=== PATIENT | female | born 1930 | race Caucasian/White ===

== ENCOUNTER 2018-09-08 13:08 | Inpatient (IN) | payer MEDICARE, OTHER ==
[~2018-09-08] VITALS: Ht 154.9 cm; Wt 56.3 kg
[2018-09-08] MEDS ORDERED: VANCOMYCIN PER PHARMACY MC ONE (13:30)
[2018-09-08] MEDS ORDERED: SODIUM CHLORIDE 0.9% 1,000ML IVBOLUS ONE ×2 (13:30)
[2018-09-08] MEDS ORDERED: AZTREONAM 2 GM in SODIUM CHLORIDE 0.9% 100 ML IVPB ONE (13:30)
--- NOTE | 2018-09-08 13:46 | NUR ---
PT. ARRIVES FROM [facility] WITH C/O BEING FOUND ON THE FLOOR, PALE, WEAK, AMS 9 WHICH RESOLVED0, HYPOTENSIVE AND INCONTINENT OF STOOL. UPON ARRIVAL TO THE ER PT. PRESENTS KNOWING HER NAME AND ANSWERING QUESTIONS APPROPIATELY. PT. WAS PLACED ON THE CP MONITOR, A SECOND IV WAS ESTABLISHED. PT. RECEIVED A 600CC BOLUS IN THE FIELD. PT. IS INCONTINENT OF BLOODY STOOL. PT. WAS GIVEN SKIN CARE AND A STRAIGHT CATH WAS COMPLETED. WARMING MEASURES ARE IN PLACE. PT.'S HOB IS ELEVATED GREATER THAN 30 DEGREES. PT.'S BP IS IMPROVING WITH THE NS BOLUS. MD TOMAS IS AT THE BEDSIDE. SIDERAILS ARE UP X 2 WITH THE CALL LIGHT IN PLACE. RN REMAINS AT THE BEDSIDE.
[2018-09-08 13:53] LABS: MICROSCOPIC AUTO
[2018-09-08 13:54] LABS: CULTURE INDICATED? NO
[2018-09-08 13:58] LABS: O2 FLOW ROOM AIR L/min
[2018-09-08] MEDS ORDERED: PLEASE ENTER ALLERGIES MC SCH (14:00)
[2018-09-08 14:04] LABS: ALANINE AMINOTRANSFERASE 10 U/L (12-78); ALBUMIN 1.9 g/dL (3.4-5.0); ANION GAP 14 mmol/L (5-15); CALCIUM 7.3 mg/dL (8.5-10.1); CHLORIDE 112 mmol/L (98-107); CREATININE 0.84 mg/dL (0.55-1.02); INTERNATIONAL NORMALIZED RATIO 1.1 (0.93-1.1); PROTHROMBIN TIME 11.5 Seconds (9.6-11.5)
[2018-09-08 14:09] LABS: ALKALINE PHOSPHATASE 24 U/L (45-117); BILIRUBIN,TOTAL 0.3 mg/dL (0.2-1.0); TOTAL PROTEIN 4.5 g/dL (6.4-8.2); TROPONIN I < 0.015 ng/mL (0.000-0.045)
[2018-09-08 14:10] LABS: MEAN CORPUSCULAR HEMOGLOBIN 31.6 pg (27.0-34.8); MEAN CORPUSCULAR HGB CONC 33.1 g/dL (32.4-35.8); MEAN CORPUSCULAR VOLUME 95.5 fL (80-100); MEAN PLATELET VOLUME 6.5 fL (7.4-10.4); PLATELET COUNT 266 x10^3/uL (130-400); RED BLOOD COUNT 1.96 x10^6/uL (3.82-5.3); RED CELL DISTRIBUTION WIDTH 15.4 % (9.6-15.2)
[2018-09-08] MEDS ORDERED: PANTOPRAZOLE 80 MG in SODIUM CHLORIDE 0.9% 50 ML IVPB ONE (14:17)
[2018-09-08] MEDS ORDERED: PANTOPRAZOLE 80 MG in SODIUM CHLORIDE 0.9% 100 ML IV SCH (14:17)
[2018-09-08 14:28] LABS: ACETONE, SERUM Negative (Negative)
--- NOTE | 2018-09-08 14:30 | NUR ---
PT HAD ANOTHER BLACK LIQUID STOOL BM. CLEANED UP PATIENT. PATIENT TO CT AT THIS TIME.
[2018-09-08] MEDS ORDERED: AMLO10TA8 PO (14:48)
[2018-09-08] MEDS ORDERED: CYCL5TAB PO (14:49)
[2018-09-08] MEDS ORDERED: HYDR-3240 PO (14:49)
[2018-09-08] MEDS ORDERED: HYDR25TA11 PO (14:50)
[2018-09-08] MEDS ORDERED: LIDO700A20 TD (14:52)
[2018-09-08] MEDS ORDERED: NAPR-816 PO (14:52)
[2018-09-08] MEDS ORDERED: ALBU90AE IH (14:53)
[2018-09-08] MEDS ORDERED: SENN-177 PO (14:53)
[2018-09-08 14:57] LABS: BASOPHILS # (AUTO) 0.04 x10^3/uL (0-0.1); BASOPHILS % (AUTO) 1 % (0-1); EOSINOPHILS # (AUTO) 0.58 x10^3/uL (0-0.4); EOSINOPHILS % (AUTO) 8 % (1-7); LYMPHOCYTES % (AUTO) 30 % (22-44); MD MORPH REVIEW ONLY; MONOCYTES # (AUTO) 0.63 x10^3/uL (0.2-0.8); MONOCYTES % (AUTO) 9 % (2-9); NEUTROPHILS # (AUTO) 3.61 x10^3/uL (1.8-6.8); NEUTROPHILS % (AUTO) 52 % (42-75)
--- NOTE | 2018-09-08 14:59 | NUR ---
PT BACK FROM CT. BLOOD REQUEST SLIP SENT TO BLOOD BANK.
[2018-09-08] MEDS ORDERED: OMNIPAQUE 350 MG/ML, 100ML BOTTLE ONE (15:00)
[2018-09-08 15:15] LABS: ANISOCYTOSIS 1+
[2018-09-08 15:16] LABS: OVALOCYTES 1+; POLYCHROMASIA 1+
[2018-09-08 15:17] LABS: <PLATELET ESTIMATE> ADEQUATE; SMALL PLATELETS 1+
[2018-09-08 15:18] VITALS: BP 87/32
--- NOTE | 2018-09-08 15:28 | NUR ---
FIRST UNIT OF PRBCs STARTED. PROTONIX LOADING DOSE COMPLETE AND PROTONIX DRIP RUNNING.
--- NOTE | 2018-09-08 15:29 | NUR ---
DAUGHTER, KELTON , DPOA AT BEDSIDE.
[2018-09-08] MEDS ORDERED: TRIA15CR3 TP (15:35)
[2018-09-08 15:37] VITALS: BP 96/41
--- NOTE | 2018-09-08 16:06 | NUR ---
VS UPDATED AND STABLE. ADMITTING PROVIDER, GUSTAVO THOMPSON AT BEDSIDE.
--- NOTE | 2018-09-08 16:26 | NUR ---
FIRST UNIT OF BLOOD COMPLETE. REQUEST SLIP SENT TO BLOOD BANK FOR SECOND UNIT.
[2018-09-08 16:37] VITALS: BP 88/39
[2018-09-08] MEDS ORDERED: SODIUM CHLORIDE 0.9% 1,000 ML IV SCH (16:37)
[2018-09-08 16:55] VITALS: BP 95/43
[2018-09-08] MEDS ORDERED: ACETAMINOPHEN 325 MG TABLET PO ONE (17:00)
[2018-09-08] MEDS: PANTOPRAZOLE 80 MG in SODIUM CHLORIDE 0.9% 100 ML IV SCH (17:39)
[2018-09-08] MEDS ORDERED: ACETAMINOPHEN 325 MG TABLET ONE (17:46)
[2018-09-08 18:05] VITALS: BP 108/49
--- NOTE | 2018-09-08 18:24 | NUR ---
SECOND UNIT OF PRBCs COMPLETED. PT RESTING WITH NO COMPLAINTS. VS STABLE.
[2018-09-08] MEDS: POTASSIUM CHLORIDE 10 MEQ in LACTATED RINGERS 1,000 ML IV SCH (18:43)
--- NOTE | 2018-09-08 18:44 | NUR ---
LR WITH 10mEQ KCL STARTED AT 125MLS/HR. PT SLEEPING. VS STABLE.
--- NOTE | 2018-09-08 18:58 | NUR ---
BREAK RN; PT RESTING IN NAD VSS
--- NOTE | 2018-09-08 19:35 | NUR ---
REPORT FROM SE PALOMINO. PT RESTING IN [facility] W/ EYES CLOSED; EVEN/REGULAR RESPIRATIONS NOTED. BP/SPO2/ECG MONITORING IN PLACE; NSR ON MONITOR. AWAITING HOSPITALIST RE-EVAL FOR POSSIBLE DOWNGRADE IN ADMIT FLOOR.
--- NOTE | 2018-09-08 20:55 | NUR ---
PT CO BACK PAIN. PT REPOSITIONED FOR COMFORT. AWAITING HOSPITALIST FOR PAIN MEDICATIONS.
--- NOTE | 2018-09-08 21:15 | NUR ---
[facility] REGARDING DOWN GRADE AND REQUEST FOR PAIN MEDICATIONS. NO ORDERS RECEIVED.
--- NOTE | 2018-09-08 21:18 | NUR ---
HOSPITAL BED REQUESTED FOR PT COMFORT
[2018-09-08] MEDS ORDERED: ONDANSETRON 2MG/ML, 2ML ONE (21:56)
[2018-09-08] MEDS: ONDANSETRON 2MG/ML, 2ML IV PRN (21:57)
--- NOTE | 2018-09-08 22:01 | NUR ---
PT MEDICATED PER EMAR FOR NAUSEA
--- NOTE | 2018-09-08 23:06 | NUR ---
PT REPORTS IMPROVEMENT IN NAUSEA WITH MEDICATIONS. PT TRANSFERED TO HOSPITAL BED W/ SCOTT MATRGUNNAR AND MOVED TO ROOM 18. BP/SPO2/ECG MONITORING IN PLACE. NSR ON MONITOR. PT RESTING COMFORTABLY IN HOSPITAL BED. REPORTS IMPROVEMENT IN BACK PAIN ONCE TRANSFERED. REPORT TO SE PALOMINO
--- NOTE | 2018-09-08 23:58 | NUR ---
report from ovi assumed care of pt, changed melissa and draw sheet, pt in nad at this time
[2018-09-09] VITALS (7 sets, daily range): BP systolic 93–115; BP diastolic 33–41
--- NOTE | 2018-09-09 01:19 | NUR ---
PT SLEEPING ON ALL MONITORS IN NAD
--- NOTE | 2018-09-09 01:49 | NUR ---
REPORT TO JOSE M PT TO ICU TO 549
[2018-09-09] MEDS: POTASSIUM CHLORIDE 10 MEQ in LACTATED RINGERS 1,000 ML IV SCH (02:31)
[2018-09-09] MEDS: PANTOPRAZOLE 80 MG in SODIUM CHLORIDE 0.9% 100 ML IV SCH ×3 (02:31→23:19)
[2018-09-09] MEDS ORDERED: PROPOFOL 10 MG/ML, 20ML ONE (10:46)
[2018-09-09] MEDS ORDERED: PROPOFOL 0 ML IV ONE (11:03)
[2018-09-09 12:02] LABS: BASOPHILS # (AUTO) 0.08 x10^3/uL (0-0.1); BASOPHILS % (AUTO) 1 % (0-1); EOSINOPHILS # (AUTO) 1.49 x10^3/uL (0-0.4); EOSINOPHILS % (AUTO) 22 % (1-7); LYMPHOCYTES % (AUTO) 32 % (22-44); MD NO; MEAN CORPUSCULAR HEMOGLOBIN 30.3 pg (27.0-34.8); MEAN CORPUSCULAR HGB CONC 34.1 g/dL (32.4-35.8); MEAN CORPUSCULAR VOLUME 88.7 fL (80-100); MEAN PLATELET VOLUME 6.7 fL (7.4-10.4); MONOCYTES # (AUTO) 0.48 x10^3/uL (0.2-0.8); MONOCYTES % (AUTO) 7 % (2-9); NEUTROPHILS # (AUTO) 2.49 x10^3/uL (1.8-6.8); NEUTROPHILS % (AUTO) 38 % (42-75); PLATELET COUNT 203 x10^3/uL (130-400); RED BLOOD COUNT 2.77 x10^6/uL (3.82-5.3)
[2018-09-09 12:04] LABS: ALANINE AMINOTRANSFERASE 11 U/L (12-78); ALBUMIN 1.7 g/dL (3.4-5.0); ANION GAP 6 mmol/L (5-15); CALCIUM 7.3 mg/dL (8.5-10.1); CHLORIDE 121 mmol/L (98-107); CREATININE 0.46 mg/dL (0.55-1.02)
[2018-09-09 12:06] LABS: ALKALINE PHOSPHATASE 26 U/L (45-117); BILIRUBIN,TOTAL 0.6 mg/dL (0.2-1.0); TOTAL PROTEIN 4.5 g/dL (6.4-8.2)
[2018-09-09] MEDS ORDERED: POTASSIUM PHOSPHATE 44 MEQ in SODIUM CHLORIDE 0.9% 500 ML IV ONE (13:00)
[2018-09-09] MEDS: SUCRALFATE 1 GM/10 ML UDC PO SCH ×3 (13:27→20:14)
[2018-09-09] MEDS: SODIUM CHLORIDE 0.9% 1,000 ML IV SCH (14:00)
[2018-09-10 00:31] VITALS: BP 105/38
[2018-09-10] MEDS: SODIUM CHLORIDE 0.9% 1,000 ML IV SCH (03:09)
[2018-09-10 04:00] VITALS: BP 96/30
[2018-09-10 05:09] LABS: ALBUMIN 1.7 g/dL (3.4-5.0); ANION GAP 6 mmol/L (5-15); CALCIUM 6.8 mg/dL (8.5-10.1); CHLORIDE 124 mmol/L (98-107)
[2018-09-10 05:13] LABS: ALANINE AMINOTRANSFERASE 21 U/L (12-78); ALKALINE PHOSPHATASE 28 U/L (45-117); BILIRUBIN,TOTAL 0.8 mg/dL (0.2-1.0); TOTAL PROTEIN 4.3 g/dL (6.4-8.2)
[2018-09-10 05:15] LABS: BASOPHILS # (AUTO) 0.05 x10^3/uL (0-0.1); BASOPHILS % (AUTO) 1 % (0-1); EOSINOPHILS # (AUTO) 1.24 x10^3/uL (0-0.4); EOSINOPHILS % (AUTO) 15 % (1-7); LYMPHOCYTES # (AUTO) 3.02 x10^3/uL (1-3.4); LYMPHOCYTES % (AUTO) 37 % (22-44); MD NO; MEAN CORPUSCULAR HEMOGLOBIN 30.4 pg (27.0-34.8); MEAN CORPUSCULAR HGB CONC 33.9 g/dL (32.4-35.8); MEAN CORPUSCULAR VOLUME 89.5 fL (80-100); MONOCYTES # (AUTO) 0.59 x10^3/uL (0.2-0.8); MONOCYTES % (AUTO) 7 % (2-9); NEUTROPHILS # (AUTO) 3.21 x10^3/uL (1.8-6.8); NEUTROPHILS % (AUTO) 40 % (42-75); PLATELET COUNT 164 x10^3/uL (130-400); RED CELL DISTRIBUTION WIDTH 17.1 % (9.6-15.2)
[2018-09-10] MEDS: SUCRALFATE 1 GM/10 ML UDC PO SCH ×4 (05:58→20:07)
[2018-09-10] MEDS: PANTOPRAZOLE 80 MG in SODIUM CHLORIDE 0.9% 100 ML IV SCH ×2 (09:08→19:39)
[2018-09-10] MEDS ORDERED: MAGNESIUM SULFATE PMX 4GM/100M 100 ML IVPB ONE (11:30)
[2018-09-10] MEDS: D5%-0.45% NACL 1,000 ML IV SCH (11:38)
[2018-09-11] MEDS: D5%-0.45% NACL 1,000 ML IV SCH (03:01)
[2018-09-11 04:19] VITALS: BP 123/50
[2018-09-11 05:27] LABS: ALBUMIN 1.7 g/dL (3.4-5.0); ANION GAP 5 mmol/L (5-15); CHLORIDE 119 mmol/L (98-107)
[2018-09-11 05:30] LABS: ALANINE AMINOTRANSFERASE 14 U/L (12-78); ALKALINE PHOSPHATASE 26 U/L (45-117); BILIRUBIN,TOTAL 0.3 mg/dL (0.2-1.0); CREATININE 0.45 mg/dL (0.55-1.02); TOTAL PROTEIN 4.2 g/dL (6.4-8.2)
[2018-09-11 05:39] LABS: MEAN CORPUSCULAR HEMOGLOBIN 30.6 pg (27.0-34.8); MEAN CORPUSCULAR HGB CONC 33.8 g/dL (32.4-35.8); MEAN CORPUSCULAR VOLUME 90.6 fL (80-100); MEAN PLATELET VOLUME 6.4 fL (7.4-10.4); PLATELET COUNT 186 x10^3/uL (130-400); RED BLOOD COUNT 2.38 x10^6/uL (3.82-5.3); RED CELL DISTRIBUTION WIDTH 17.3 % (9.6-15.2)
[2018-09-11] MEDS: PANTOPRAZOLE 80 MG in SODIUM CHLORIDE 0.9% 100 ML IV SCH (05:53)
[2018-09-11] MEDS ORDERED: POTASSIUM PHOSPHATE 44 MEQ in SODIUM CHLORIDE 0.9% 500 ML IV ONE (06:00)
[2018-09-11 06:05] LABS: MD MORPH REVIEW ONLY
[2018-09-11 06:09] LABS: BASOPHILS # (AUTO) 0.06 x10^3/uL (0-0.1); BASOPHILS % (AUTO) 1 % (0-1); EOSINOPHILS # (AUTO) 1.37 x10^3/uL (0-0.4); EOSINOPHILS % (AUTO) 16 % (1-7); LYMPHOCYTES # (AUTO) 3.23 x10^3/uL (1-3.4); LYMPHOCYTES % (AUTO) 37 % (22-44); MONOCYTES # (AUTO) 0.66 x10^3/uL (0.2-0.8); MONOCYTES % (AUTO) 8 % (2-9); NEUTROPHILS # (AUTO) 3.44 x10^3/uL (1.8-6.8); NEUTROPHILS % (AUTO) 39 % (42-75)
[2018-09-11 06:12] LABS: <PLATELET ESTIMATE> ADEQUATE; <PLT MORPHOLOGY> NORMAL PLT MORPH; ANISOCYTOSIS 1+; POLYCHROMASIA 1+
[2018-09-11] MEDS: SUCRALFATE 1 GM/10 ML UDC PO SCH ×4 (06:23→20:28)
[2018-09-11] MEDS: PANTOPRAZOLE 40 MG IV IVPush SCH ×2 (11:17→20:28)
[2018-09-11 11:20] VITALS: BP 117/43
[2018-09-11 11:35] VITALS: BP 118/56
[2018-09-11 11:50] VITALS: BP 120/55
[2018-09-11 12:22] VITALS: BP 126/50
[2018-09-11 13:44] VITALS: BP 123/42
[2018-09-11] MEDS: ONDANSETRON 2MG/ML, 2ML IV PRN (19:02)
[2018-09-11] MEDS ORDERED: PROMETHAZINE 25 MG/ML, 1ML IM ONE (22:00)
[2018-09-11] MEDS ORDERED: OMNIPAQUE 350 MG/ML, 100ML BOTTLE ONE (22:30)
[2018-09-11] MEDS: SODIUM CHLORIDE 0.9% 1,000 ML IV SCH (22:51)
[2018-09-11] MEDS ORDERED: SODIUM CHLORIDE 0.9%, 250ML IVBOLUS ONE (23:00)
[2018-09-12] VITALS (7 sets, daily range): BP systolic 104–128; BP diastolic 32–56
[2018-09-12 04:17] LABS: MEAN CORPUSCULAR HEMOGLOBIN 30.8 pg (27.0-34.8); MEAN CORPUSCULAR HGB CONC 34.4 g/dL (32.4-35.8); MEAN CORPUSCULAR VOLUME 89.7 fL (80-100); MEAN PLATELET VOLUME 6.5 fL (7.4-10.4); PLATELET COUNT 190 x10^3/uL (130-400); RED BLOOD COUNT 2.49 x10^6/uL (3.82-5.3); RED CELL DISTRIBUTION WIDTH 15.8 % (9.6-15.2)
[2018-09-12 04:29] LABS: ALANINE AMINOTRANSFERASE 13 U/L (12-78); ALBUMIN 1.8 g/dL (3.4-5.0); ANION GAP 5 mmol/L (5-15); CALCIUM 7.2 mg/dL (8.5-10.1); CHLORIDE 120 mmol/L (98-107); CREATININE 0.56 mg/dL (0.55-1.02)
[2018-09-12 04:31] LABS: ALKALINE PHOSPHATASE 32 U/L (45-117); BILIRUBIN,TOTAL 0.4 mg/dL (0.2-1.0); TOTAL PROTEIN 4.3 g/dL (6.4-8.2)
[2018-09-12 04:34] LABS: ANISOCYTOSIS 1+; BASOPHILS # (AUTO) 0.07 x10^3/uL (0-0.1); BASOPHILS % (AUTO) 1 % (0-1); EOSINOPHILS # (AUTO) 0.57 x10^3/uL (0-0.4); EOSINOPHILS % (AUTO) 7 % (1-7); HYPOCHROMIA 1+; LYMPHOCYTES # (AUTO) 3.69 x10^3/uL (1-3.4); LYMPHOCYTES % (AUTO) 42 % (22-44); MD MORPH REVIEW ONLY; MONOCYTES # (AUTO) 0.66 x10^3/uL (0.2-0.8); MONOCYTES % (AUTO) 7 % (2-9); NEUTROPHILS # (AUTO) 3.89 x10^3/uL (1.8-6.8); NEUTROPHILS % (AUTO) 44 % (42-75)
[2018-09-12 04:35] LABS: BASOPHILLIC STIPPLING 1+
[2018-09-12 04:36] LABS: <PLATELET ESTIMATE> ADEQUATE; <PLT MORPHOLOGY> NORMAL PLT MORPH; ECHINOCYTES 1+
[2018-09-12] MEDS: SUCRALFATE 1 GM/10 ML UDC PO SCH ×4 (07:00→20:32)
[2018-09-12] MEDS: PANTOPRAZOLE 40 MG IV IVPush SCH ×2 (08:48→20:32)
[2018-09-12] MEDS: METRONIDAZOLE PMX 500MG/100ML 100 ML IVPB SCH ×2 (09:18→18:00)
[2018-09-12] MEDS ORDERED: CEFEPIME 1 GM in DEXTROSE 5% 50 ML IV SCH (09:30)
[2018-09-12] MEDS ORDERED: MAGNESIUM SULFATE PMX 2GM/50ML 50 ML IV ONE (10:30)
[2018-09-12] MEDS: SODIUM CHLORIDE 0.9% 1,000 ML IV SCH ×2 (11:53→23:32)
[2018-09-13] VITALS (7 sets, daily range): BP systolic 93–132; BP diastolic 36–70
[2018-09-13] MEDS: METRONIDAZOLE PMX 500MG/100ML 100 ML IVPB SCH (02:08)
[2018-09-13 04:55] LABS: MEAN CORPUSCULAR HEMOGLOBIN 30.1 pg (27.0-34.8); MEAN CORPUSCULAR HGB CONC 34.5 g/dL (32.4-35.8); MEAN CORPUSCULAR VOLUME 87.1 fL (80-100); MEAN PLATELET VOLUME 6.5 fL (7.4-10.4); NEUTROPHILS % (AUTO) 45 % (42-75); PLATELET COUNT 156 x10^3/uL (130-400); RED BLOOD COUNT 2.31 x10^6/uL (3.82-5.3); RED CELL DISTRIBUTION WIDTH 16.4 % (9.6-15.2)
[2018-09-13 05:02] LABS: ALANINE AMINOTRANSFERASE 10 U/L (12-78); ALBUMIN 1.4 g/dL (3.4-5.0); ANION GAP 4 mmol/L (5-15); CALCIUM 6.5 mg/dL (8.5-10.1); CHLORIDE 119 mmol/L (98-107); CREATININE 0.51 mg/dL (0.55-1.02)
[2018-09-13 05:04] LABS: ALKALINE PHOSPHATASE 26 U/L (45-117); BILIRUBIN,TOTAL 0.5 mg/dL (0.2-1.0); TOTAL PROTEIN 3.4 g/dL (6.4-8.2)
[2018-09-13 05:50] LABS: BASOPHILS # (AUTO) 0.08 x10^3/uL (0-0.1); BASOPHILS % (AUTO) 1 % (0-1); EOSINOPHILS # (AUTO) 0.59 x10^3/uL (0-0.4); EOSINOPHILS % (AUTO) 7 % (1-7); LYMPHOCYTES # (AUTO) 3.25 x10^3/uL (1-3.4); LYMPHOCYTES % (AUTO) 39 % (22-44); MD SCAN; MONOCYTES # (AUTO) 0.72 x10^3/uL (0.2-0.8); MONOCYTES % (AUTO) 9 % (2-9); NEUTROPHILS # (AUTO) 3.72 x10^3/uL (1.8-6.8)
[2018-09-13] MEDS: PANTOPRAZOLE 40 MG IV IVPush SCH ×2 (07:55→22:01)
[2018-09-13] MEDS: SUCRALFATE 1 GM/10 ML UDC PO SCH ×4 (07:55→22:00)
[2018-09-14] VITALS (8 sets, daily range): BP systolic 92–168; BP diastolic 33–76
[2018-09-14 04:40] LABS: MEAN CORPUSCULAR HGB CONC 34.4 g/dL (32.4-35.8); MEAN CORPUSCULAR VOLUME 90.1 fL (80-100); MEAN PLATELET VOLUME 6.6 fL (7.4-10.4); PLATELET COUNT 156 x10^3/uL (130-400); RED CELL DISTRIBUTION WIDTH 16.7 % (9.6-15.2)
[2018-09-14 05:44] LABS: MD YES
[2018-09-14 05:47] LABS: ANISOCYTOSIS 1+; EOS% (MANUAL) 11 % (1-7); LYMPH#(MANUAL) 2.85 x10^3/uL (1-3.4); LYMPHS% (MANUAL) 39 % (22-44); MONOS#(MANUAL) 0.44 x10^3/uL (0.3-2.7); MONOS% (MANUAL) 6 % (2-9); POLYCHROMASIA 1+; SEG#(MANUAL) 3.21 x10^3/uL (1.8-6.8); SEGS% (MANUAL) 44 % (42-75)
[2018-09-14 05:48] LABS: <PLATELET ESTIMATE> ADEQUATE; <PLT MORPHOLOGY> NORMAL PLT MORPH
[2018-09-14] MEDS: SUCRALFATE 1 GM/10 ML UDC PO SCH ×4 (07:00→21:22)
[2018-09-14] MEDS ORDERED: FENTANYL PF 100 MCG/2ML ONE (08:18)
[2018-09-14] MEDS ORDERED: EPINEPHRINE SYRINGE 0.1 MG/ML, 10ML ONE (09:22)
[2018-09-14] MEDS: PANTOPRAZOLE 40 MG IV IVPush SCH ×2 (10:19→21:23)
[2018-09-15 05:18] LABS: BASOPHILS # (AUTO) 0.06 x10^3/uL (0-0.1); BASOPHILS % (AUTO) 1 % (0-1); EOSINOPHILS # (AUTO) 1.02 x10^3/uL (0-0.4); EOSINOPHILS % (AUTO) 12 % (1-7); LYMPHOCYTES # (AUTO) 2.65 x10^3/uL (1-3.4); LYMPHOCYTES % (AUTO) 30 % (22-44); MD NO; MEAN CORPUSCULAR HGB CONC 34.2 g/dL (32.4-35.8); MEAN CORPUSCULAR VOLUME 90.6 fL (80-100); MEAN PLATELET VOLUME 6.7 fL (7.4-10.4); MONOCYTES # (AUTO) 0.75 x10^3/uL (0.2-0.8); MONOCYTES % (AUTO) 8 % (2-9); NEUTROPHILS # (AUTO) 4.35 x10^3/uL (1.8-6.8); NEUTROPHILS % (AUTO) 49 % (42-75); PLATELET COUNT 185 x10^3/uL (130-400); RED BLOOD COUNT 3.41 x10^6/uL (3.82-5.3)
[2018-09-15] MEDS: PANTOPRAZOLE 40 MG IV IVPush SCH (07:37)
[2018-09-15] MEDS: SUCRALFATE 1 GM/10 ML UDC PO SCH ×4 (07:37→20:17)
[2018-09-15 15:53] VITALS: BP 126/67
[2018-09-15 18:44] VITALS: BP 119/53
[2018-09-15] MEDS: PANTOPROZOLE 40MG TABLET PO SCH (20:17)
[2018-09-16 01:10] VITALS: BP 121/59
[2018-09-16 04:32] LABS: ANION GAP 5 mmol/L (5-15); CALCIUM 7.3 mg/dL (8.5-10.1); CHLORIDE 115 mmol/L (98-107); CREATININE 0.69 mg/dL (0.55-1.02)
[2018-09-16 04:46] LABS: BASOPHILS # (AUTO) 0.04 x10^3/uL (0-0.1); BASOPHILS % (AUTO) 1 % (0-1); EOSINOPHILS # (AUTO) 0.53 x10^3/uL (0-0.4); EOSINOPHILS % (AUTO) 7 % (1-7); LYMPHOCYTES # (AUTO) 2.29 x10^3/uL (1-3.4); LYMPHOCYTES % (AUTO) 30 % (22-44); MD NO; MEAN CORPUSCULAR HEMOGLOBIN 29.9 pg (27.0-34.8); MEAN CORPUSCULAR HGB CONC 33.2 g/dL (32.4-35.8); MEAN CORPUSCULAR VOLUME 90.1 fL (80-100); MEAN PLATELET VOLUME 6.2 fL (7.4-10.4); MONOCYTES # (AUTO) 0.67 x10^3/uL (0.2-0.8); MONOCYTES % (AUTO) 9 % (2-9); NEUTROPHILS # (AUTO) 4.13 x10^3/uL (1.8-6.8); NEUTROPHILS % (AUTO) 54 % (42-75); PLATELET COUNT 255 x10^3/uL (130-400); RED BLOOD COUNT 3.32 x10^6/uL (3.82-5.3); RED CELL DISTRIBUTION WIDTH 15.7 % (9.6-15.2)
[2018-09-16] MEDS: PANTOPROZOLE 40MG TABLET PO SCH (04:51)
[2018-09-16 06:53] VITALS: BP 101/45
[2018-09-16] MEDS: SUCRALFATE 1 GM/10 ML UDC PO SCH ×3 (07:42→16:00)
[2018-09-16] MEDS ORDERED: PANT40TA5 PO (12:40)
[2018-09-16] MEDS ORDERED: SUCR1ORA5 PO (12:40)
[2018-09-16 13:09] VITALS: BP 100/48
== END 2018-09-16 16:16 | disposition home or self-care (01) | DRG 377 ==
LOC: ED 13:16 → EDIP 15:13 → CCU 09-09 02:00 → 3NW 09-15 14:11
PROVIDERS: ADMIT Internal Medicine; ATTEND Internal Medicine
PROC: 30233N1 Transfusion of Nonautologous Red Blood Cells into Peripheral Vein, Percutaneous Approach (ICD-10-PCS; principal; 2018-09-08)
PROC: 0T9B70Z Drainage of Bladder with Drainage Device, Via Natural or Artificial Opening (ICD-10-PCS; 2018-09-08)
PROC: 0DJ08ZZ Inspection of Upper Intestinal Tract, Via Natural or Artificial Opening Endoscopic (ICD-10-PCS; 2018-09-08)
PROC: 0W3P8ZZ Control Bleeding in Gastrointestinal Tract, Via Natural or Artificial Opening Endoscopic (ICD-10-PCS; 2018-09-14)
DX: K26.4 Chronic or unspecified duodenal ulcer with hemorrhage (principal); E43 Unspecified severe protein-calorie malnutrition; R57.8 Other shock; D62 Acute posthemorrhagic anemia; E87.2 Acidosis; K92.0 Hematemesis; Z66 Do not resuscitate; E87.6 Hypokalemia; K29.70 Gastritis, unspecified, without bleeding; F03.90 Unspecified dementia, unspecified severity, without behavioral disturbance, psychotic disturbance, mood disturbance, and anxiety; H91.90 Unspecified hearing loss, unspecified ear; I10 Essential (primary) hypertension; J44.9 Chronic obstructive pulmonary disease, unspecified; F43.21 Adjustment disorder with depressed mood; K20.9 Esophagitis, unspecified; K44.9 Diaphragmatic hernia without obstruction or gangrene; T39.395A Adverse effect of other nonsteroidal anti-inflammatory drugs [NSAID], initial encounter; Z87.891 Personal history of nicotine dependence; Z90.710 Acquired absence of both cervix and uterus; Z88.0 Allergy status to penicillin; Z90.49 Acquired absence of other specified parts of digestive tract
CPT/HCPCS: 36415; 36430; 36600; 51702; 71045; 74174; 74177; 80048; 80053; 81001; 82010; 82803; 83605; 83735; 83930; 84100; 84145; 84484; 85014; 85018; 85025; 85610; 85730; 86677; 86850; 86900; 86923; 87040; 87081; 93005; 99285; G0378; J0692; J2405; J2550; J2704; J3010; J3480; Q9967; C9113; J3475; J7030; J7040; J7050; J7120; P9016